=== PATIENT | female | born 1970 | race African-American/Black ===

== ENCOUNTER 2021-03-01 15:51 | Emergency (ER) | payer OTHER ==
[~2021-03-01] VITALS: Ht 172.7 cm; Wt 110.2 kg
[2021-03-01 17:44] VITALS: BP 168/95
[2021-03-01] MEDS ORDERED: TESSALON PERLE100 MG PO (17:56)
== END 2021-03-01 17:44 | disposition home or self-care (01) ==
LOC: ER 15:51 → EDBD 15:51 → ER 17:44
DX: R05 Cough (principal); R51.9 Headache, unspecified; I10 Essential (primary) hypertension; Z20.822 Contact with and (suspected) exposure to COVID-19